=== PATIENT | male | born 1980 | race American Indian/Alaskan Native ===

== ENCOUNTER 2016-12-25 12:13 | Emergency (ER) | payer SELFPAY ==
[~2016-12-25] VITALS: Ht 185.4 cm; Wt 107.0 kg
[2016-12-25 12:33] VITALS: Ht 185.4 cm; Wt 107.0 kg
[2016-12-25] MEDS ORDERED: ASPIRIN 325 MG TAB PO STA (15:28)
--- NOTE | 2016-12-25 15:44 | RADRPT ---
PROCEDURE: XR Chest. CLINICAL INDICATION: Chest pain. TECHNIQUE: Single frontal view of the chest was obtained COMPARISON: None FINDINGS: The soft tissues are normal. The bony elements are poorly visualized due to underpenetration of the radiograph. The heart is borderline enlarged. The cardiomediastinal silhouette and hilar structur es are normal. The pulmonary vasculature is normal. There is a left-sided aorta. The lungs are susan r. The costophrenic angles are normal. IMPRESSION: 1. Borderline cardiomegaly with no evidence of active cardiopulmonary disease. RPTAT:AAJJ Physician Kamron Date Time Electronically viewed and signed by Abner Pena Physician on 12/25/2016 15:44 DIANNA/
--- NOTE | 2016-12-25 15:58 | ERD ---
ER Documentation Chief Complaint Date/Time DATE: 12/25/16 TIME: 15:52 Chief Complaint CHEST PAIN RADIATES TO LEFT SHOULDER HPI This is a very pleasant 36-year-old male with no past medical history that presents to the emergency department complaining of persistent chest pain that has been present for the past 48 hours. The patient indicates the pain is pleuritic denies any chest pressure. He does state that he is also experiencing pain in his left shoulder but the pain does not radiate to the back neck or jaw. He has had no shortness of breath at rest or exertion. He denies any recent travel, prolonged immobilization or recent surgical interventions. He has no family history of coronary artery disease or thrombophilia. The patient does not smoke tobacco but does smoke medicinal marijuana. He denies a productive or nonproductive cough. He has had no fevers no shaking or chills. He denies any swelling of his lower extremity. He has had no vomiting or diarrhea. He denies any recent remote blunt or penetrating chest wall trauma ROS All systems reviewed and are negative except as per history of present illness. Medications Home Meds Active Scripts Naproxen* (Naprosyn*) 500 Mg Tablet, 500 MG PO BID, #30 TAB Prov:NOEMÍ TORRES 12/25/16 Allergies Allergies: Coded Allergies: No Known Allergy (Unverified , 12/25/16) PMhx/Soc History of Surgery: Yes (nose surgery.) Anesthesia Reaction: No Hx Neurological Disorder: No Hx Respiratory Disorders: No Hx Cardiac Disorders: No Hx Psychiatric Problems: No Hx Miscellaneous Medical Probl: No Hx Alcohol Use: Yes Hx Substance Use: Yes ([place]) Hx Tobacco Use: No Smoking Status: Never smoker Physical Exam Vitals Vital Signs Date Time Temp Pulse Resp B/P Pulse Ox O2 Delivery O2 Flow Rate FiO2 12/25/16 18:13 98.3 58 18 118/78 96 Room Air 12/25/16 15:45 98.3 54 17 123/80 96 Room Air 12/25/16 12:33 98.4 67 19 119/68 96 Physical Exam Constitutional:Well-developed. Well-nourished. HEENT:Normocephalic. Atraumatic. Right pupil is reactive to light, 3 mm. 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 Moist mucous membranes.No tonsillar exudates. Neck: No nuchal rigidity. No lymphadenopathy. No posterior cervical spine tenderness or step-offs. No JVD Respiratory: Not using accessory muscles of respiration.Lungs were clear to auscultation bilaterally. No rhonchi. No rales. No wheezing. Cardiovascular: Regular rate regular rhythm.No murmurs. No rubs were appreciated.S1, S2 normal. Distal pulses are palpable 2+ bilaterally. No reproducible chest wall tenderness crepitus or ecchymosis GI: Abdomen was soft. Nontender. Non Distended. No pulsatile abdominal masses or bruits. No rebound. No guarding. Bowel sounds were present and normal. Muscle skeletal: Full range of motion of both the upper and lower extremities bilaterally.Normal muscle tone.No assymetrical calf tenderness or swelling. Negative Homans sign Skin: No petechia, no purpura. No lesions on the palms or the soles of the feet. No maculopapular rash. NEURO: Patient was alert, awake, orientated x3.No facial droop. Gait observed and normal with no ataxia.Speech had regular rate and rhythm. No focal neurological deficits. Result Diagram: 12/25/16 1555 12/25/16 1555 Results 24 hrs Laboratory Tests Test 12/25/16 15:55 White Blood Count 10.310^3/ul Red Blood Count 5.1610^6/ul Hemoglobin 15.1g/dl Hematocrit 46.0% Mean Corpuscular Volume 89.1fl Mean Corpuscular Hemoglobin 29.3pg Mean Corpuscular Hemoglobin Concent 32.8g/dl Red Cell Distribution Width 13.5% Platelet Count 16749^3/UL Mean Platelet Volume 11.3fl Neutrophils % 58.3% Lymphocytes % 31.3% Monocytes % 7.1% Eosinophils % 2.3% Basophils % 0.5% Nucleated Red Blood Cells % 0.0/100WBC Neutrophils # 6.010^3/ul Lymphocytes # 3.210^3/ul Monocytes # 0.710^3/ul Eosinophils # 0.210^3/ul Basophils # 0.110^3/ul Nucleated Red Blood Cells # 0.010^3/ul Prothrombin Time 13.1Sec Prothrombin Time Ratio 1.0 INR International Normalized Ratio 0.99 Activated Partial Thromboplast Time 26.7Sec Sodium Level 141mmol/L Potassium Level 3.9mmol/L Chloride Level 102mmol/L Carbon Dioxide Level 28mmol/L Anion Gap 15 Blood Urea Nitrogen 14mg/dl Creatinine 0.87mg/dl Glucose Level 88mg/dl Calcium Level 8.7mg/dl Total Bilirubin 0.4mg/dl Direct Bilirubin 0.00mg/dl Indirect Bilirubin 0.4mg/dl Aspartate Amino Transf (AST/SGOT) 31IU/L Alanine Aminotransferase (ALT/SGPT) 49IU/L Alkaline Phosphatase 117IU/L Creatine Kinase 147IU/L Creatine Kinase Index 1.0 Creatinine Kinase MB (Mass) 1.43ng/ml Troponin I < 0.012ng/ml B-Type Natriuretic Peptide 26PG/ML Total Protein 7.8g/dl Albumin 4.1g/dl Globulin 3.70g/dl Albumin/Globulin Ratio 1.10 Current Medications Medications (Trade) Dose Ordered Sig/Chelly Route PRN Reason Start Time Stop Time Status Last Admin Dose Admin Aspirin (Aspirin) 325 mg ONCE STAT PO 12/25/16 15:28 12/25/16 15:31 DC 12/25/16 15:59 Diclofenac Sodium (Dyloject) 37.5 mg ONCE STAT IV 12/25/16 17:32 12/25/16 17:33 DC 12/25/16 17:56 IV Flush 10 ml 10 ml STK-MED ONCE .ROUTE 12/25/16 17:35 12/25/16 17:36 DC 12/25/16 17:47 Sodium Chloride 100 ml @ ud STK-MED ONCE .ROUTE 12/25/16 17:35 12/25/16 17:36 DC 12/25/16 17:47 Iohexol (Omnipaque) 100 ml @ ud STK-MED ONCE .ROUTE 12/25/16 17:35 12/25/16 17:36 DC 12/25/16 17:47 Procedures/MDM The patient presented to the emergency department with chest pain. My clinical evaluation and workup was to distinguish minor causes of chest pain from acute life threatening conditions such as myocardial infarction, pulmonary embolism, aortic dissection, esophageal rupture, cardiac tamponade. The patient was placed on a cardiac cath tech and continuous pulse oximetry. IV access established by nursing staff. 12 Lead EKG tracing ordered and reviewed by myself showed: Normal sinus rhythm of 74 bpm and no arrhythmia. LA interval normal. QRS duration normal. No ST segment elevation No ST segment depression. T-wave inversion in the inferior leads III and aVF The patient is CT scan of his chest performed which showed no evidence of a pulmonary embolism or aortic dissection. The patient received I will check in the emergency department had complete resolution of his pain. He stated he felt comfortable being discharged home and I did indicate that from my workup and physical exam findings this was more likely pleuritic chest pain but that he would benefit from an outpatient cardiology follow-up. The patient was discharged home in fair condition. They were instructed to return to the emergency department at any time if there was any worsening of their condition. The patient stated they would follow up with their PCP in the next 24-48 hours to initiate a suitable medication regimen under the care of their PCP as well as to allow their PCP to monitor any drug reactions. The patient was discharged home with prescriptions after they gave informed consent to the new medication. They were also fully informed by myself on the adverse effects and adverse drug interactions in order to provide adequate safeguards to prevent possible adverse reactions to medications. Departure Diagnosis: Primary Impression: Pleuritic chest pain Condition: NOEMÍ Olivas Dec 25, 2016 15:58
[2016-12-25 16:06] LABS: ADD SCAN DIFF NO
[2016-12-25 16:09] LABS: BASOPHIL # 0.1 10^3/ul (0.0-0.1); BASOPHILS % 0.5 % (0.0-2.0); EOSINOPHILS # 0.2 10^3/ul (0.0-0.5); EOSINOPHILS % 2.3 % (0.0-7.0); HEMOGLOBIN 15.1 g/dl (14.0-18.0); LYMPHOCYTES # 3.2 10^3/ul (0.8-2.9); LYMPHOCYTES % 31.3 % (15.0-51.0); MEAN CORPUSCULAR HEMOGLOBIN 29.3 pg (29.0-33.0); MEAN CORPUSCULAR HGB CONC 32.8 g/dl (32.0-37.0); MEAN CORPUSCULAR VOLUME 89.1 fl (82.0-101.0); MEAN PLATELET VOLUME 11.3 fl (7.4-10.4); MONOCYTE # 0.7 10^3/ul (0.3-0.9); MONOCYTES % 7.1 % (0.0-11.0); NEUTROPHILS % 58.3 % (39.0-77.0); PLATELET COUNT 233 10^3/UL (140-415); RED BLOOD COUNT 5.16 10^6/ul (4.70-6.10); RED CELL DISTRIBUTION WIDTH 13.5 % (11.5-14.5); WHITE BLOOD COUNT 10.3 10^3/ul (4.8-10.8)
[2016-12-25 16:28] LABS: INR 0.99; PROTIME 13.1 Sec (12.2-14.2)
[2016-12-25 16:29] LABS: PARTIAL THROMBOPLASTIN TIME 26.7 Sec (25.0-35.0)
[2016-12-25 16:54] LABS: ALBUMIN 4.1 g/dl (3.3-4.9); CHLORIDE 102 mmol/L (97-110); SODIUM 141 mmol/L (135-144)
[2016-12-25 16:55] LABS: B-TYPE NATRIURETIC PEPTIDE 26 PG/ML (0-125); POTASSIUM 3.9 mmol/L (3.5-5.1)
[2016-12-25 16:57] LABS: ALANINE AMINOTRANSFERASE 49 IU/L (13-69); ALKALINE PHOSPHATASE 117 IU/L (42-121); ANION GAP 15 (8-16); ASPARTATE AMINO TRANSFERASE 31 IU/L (15-46); BILIRUBIN,INDIRECT 0.4 mg/dl (0-1.1); BILIRUBIN,TOTAL 0.4 mg/dl (0.2-1.3); BLOOD UREA NITROGEN 14 mg/dl (7-20); CARBON DIOXIDE 28 mmol/L (21-31); CREATINE KINASE 147 IU/L (23-200); CREATININE 0.87 mg/dl (0.61-1.24); GLUCOSE 88 mg/dl (70-220); TOTAL PROTEIN 7.8 g/dl (6.1-8.1)
[2016-12-25 16:58] LABS: CALCIUM 8.7 mg/dl (8.4-10.2)
[2016-12-25 16:59] LABS: CK-MB 1.43 ng/ml (0.0-2.4); TROPONIN-I < 0.012 ng/ml (0.00-0.12)
[2016-12-25] MEDS ORDERED: DICLOFENAC SODIUM 37.5 MG/ML VIAL IV STA (17:32)
[2016-12-25] MEDS ORDERED: SOD CHLORIDE 0.9% 100 ML ONE (17:35)
[2016-12-25] MEDS ORDERED: IOHEXOL 100 ML ONE (17:35)
--- NOTE | 2016-12-25 17:58 | RADRPT ---
PROCEDURE: CTA Chest. CLINICAL INDICATION: 36 real male with shortness of breath. TECHNIQUE: The study was performed utilizing a multidetector CT scanner. Direct spiral 1 mm axial sections were obtained from the thoracic inlet to the upper abdomen with the use of 120 cc of Omnip aque 350 nonionic intravenous contrast material and reformatted at 3 mm. Coronal reformations were o btained. The images were reviewed on a PACS workstation. CTDI: 28.2 and DLP: 759. One or more of the following dose reduction techniques were used: - Automated exposure control. - Adjustment of the mA and/or kV according to patient size. Use of iterative reconstruction technique. COMPARISON: Chest x-ray 12/25/2016 03:34 p.m. FINDINGS: The thyroid gland trachea are normal. The great vessels of the superior mediastinum are n ormal. The aorta, main pulmonary artery and pulmonary artery outflow tracts are normal. No central or segmental pulmonary emboli identified. The heart is normal in size. No pericardial or pleural effusion is identified. The pulmonary vasculature and lungs are normal with no acute infiltrate or pulmonary nodule identifi ed. No enlarged supraclavicular, axillary or mediastinal lymph nodes are identified. No enlarged hilar lymph node is identified. The liver is enlarged measuring 18.2 cm AP. No hepatic mass or intrahepa tic biliary ductal dilatation is identified. The gallbladder and gallbladder wall are normal. There is fecal material in the colon. The small bowel loops and stomach are normal. The pancreas is normal. The spleen measures 12.2 cm in length. The adrenal glands and visible portions of both kidneys are normal. The bony elements are normal.. IMPRESSION: 1. Negative CT angiogram of the chest. 2. Hepatomegaly. RPTAT:AAJJ Physician Kamron Date Time Electronically viewed and signed by Physician Kamron on 12/25/2016 17:58 /
[2016-12-25] MEDS ORDERED: NAPR-260 PO (18:20)
[2016-12-25 18:36] VITALS: BP 116/79; PULSE 59; RESP 18; TEMP 98.1
[2016-12-25 18:40] LABS: ADD UMIC NO; UR BILIRUBIN (Dip) NEGATIVE (NEGATIVE); UR BLOOD (Dip) NEGATIVE (NEGATIVE); UR COLOR LT. YELLOW (YELLOW); UR GLUCOSE (Dip) NEGATIVE (NEGATIVE); UR KETONES (Dip) NEGATIVE (NEGATIVE); UR LEUKOCYTE ESTERASE (Dip) NEGATIVE (NEGATIVE); UR NITRITE (Dip) NEGATIVE (NEGATIVE); UR TOTAL PROTEIN (Dip) NEGATIVE (NEGATIVE); UR UROBILINOGEN (Dip) 0.2 E.U./dL (0.1-1.0)
[2016-12-25 18:42] LABS: UR CLARITY CLEAR (CLEAR)
[2016-12-25 18:59] LABS: BARBITURATES Negative (NEGATIVE); BENZODIAZEPINES Negative (NEGATIVE); CANNABINOIDS Positive (NEGATIVE); COCAINE Negative (NEGATIVE); OPIATES Negative (NEGATIVE)
== END 2016-12-25 18:38 | disposition home or self-care (01) ==
LOC: E/R 12:13
DX: R07.89 Other chest pain (principal)
CPT/HCPCS: 36415; 71010; 71275; 80053; 80307; 81003; 82550; 82553; 83880; 84484; 85025; 85610; 85730; 93005; 96374; 99285; Q9967